=== PATIENT | female | born 1945 | race Caucasian/White ===

== ENCOUNTER 2024-08-09 11:18 | Day surgery (SDC) | payer MEDICARE, MEDICAID, SELFPAY ==
[2024-08-03 14:23] VITALS: BMI 32.9
[2024-08-05 13:46] VITALS: BMI 32.9
[2024-08-09] VITALS (11 sets, daily range): BP systolic 127–159; BP diastolic 58–82; PULSE 72–90; RESP 12–19; TEMP 36.1–37.4; O2SAT 93–96; BMI 32.9
--- NOTE | 2024-08-09 | PATH_ITS ---
[facility] Accession Number: [id number] No. of containers..01 Tissue . 01 Material submitted: . gallbladder - GALLBLADDER . 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 Lymph node of cystic duct with reactive changes. Negative for dysplasia and malignancy. MRV 08/11/2024 1659 Local . 01 Electronically signed: . Kellie Candelaria MD, Pathologist NPI- [id number] . 01 Gross description: . Received in formalin with two identifiers and gallbladder, is an intact gallbladder 8.7 x 3.5 x 3.5 cm. The external surface is de la paz to violaceous and unremarkable. The cystic duct margin is inked blue, and a brown lymph node candidate measuring 0.9 cm in greatest dimension is identified. The lumen is filled with multiple red-yellow faceted calculi up to 0.8 cm in greatest dimension grossly obstructing the cystic duct and admixed with hemorrhagic material. The mucosa is ann-de la paz and diffusely denuded with no yellow areas of discoloration, polyps, or lesions identified. The cagle are pale de la paz and average 0.3 cm thick with no distinct lesions identified. Care Specialist sections are submitted in cassette A1. ([id number]) ([id number]) /ARUN 08/11/2024 1503 Local . 01 Pathologist provided ICD-10: K80.20 . 01 CPT . 287835 Specimen Comment: A courtesy copy of this report has been sent to [phone] Performed at: [address] [facility], [place], [place] [id number] MD Lazarus Felipe MD Phone: [phone]
[2024-08-09] MEDS: LACTATED RINGERS 1,000 ML 42 ML IV ×2 (12:21→14:46)
[2024-08-09] MEDS: ACETAMINOPHEN 325 MG TABLET 975 MG PO (12:22)
--- NOTE | 2024-08-09 12:37 | PM.PREOP ---
Pre-operative Note COVID-19 COVID-19 status: Not tested Interval Note History & Physical reviewed/Exam performed by Physician: Yes Changes to H&P: No ASA Class (for procedural sedation): II
[2024-08-09] MEDS: CEFAZOLIN 2 GM/100 ML PREMIX 100 ML IV (13:31)
[2024-08-09] MEDS: BUPIVACAINE 0.5% W/ EPI (PF) 10 ML VIAL 30 ML INJ (13:43)
--- NOTE | 2024-08-09 13:46 | SUR.OPER ---
Supine on padded OR bed, head on pillow, safety belt at thigh, both arms secured on padded arm board <90 degrees abduction. Legs uncrossed. Padded footboard in place. Tape over blanket to secure lower legs.
--- NOTE | 2024-08-09 14:52 | P.OP_ITS ---
Operative Date/Time/Diagnoses Date of procedure: 08/09/24 Time of procedure: 14:53 Pre-op diagnosis: Gallstones Post-op diagnosis: same Procedure & Clinicians Procedure: Laparoscopic cholecystectomy Same procedure as scheduled: Yes Surgeon: Rayray Elam Integration Developer: Segundo Scott Anesthesia Type: General Operative Notes Procedure in detail: The patient was given preoperative antibiotics. The patient was brought to the operating room and placed on the table in the supine position. General endotracheal anesthesia was induced. The abdomen was prepped and draped. A time-out was performed. We made a 1 cm infraumbilical incision. We dissected down to the base of the umbilical stalk using cautery. We grasped the umbilical stalk with a Carolann clamp to elevate the abdominal wall. We scored the fascia in the midline with cautery. We pierced the peritoneum with a Peon clamp. The Nito port was placed and the abdomen was insufflated to 15 mmHg. A 5 mm 30 degree laparoscopic was inserted. There was no evidence of any injury from the entry. Next, we placed 5 mm ports in the subxiphoid position and right upper quadrant at the midclavicular line and anterior axillary line. The patient was then positioned in reverse Trendelenburg and the table was tilted to the left. There were adhesions of omentum over the gallbladder which we took down with her cautery. The gallbladder was quite tense and distended and needed to be drained with the syringe. We aspirated about 20 mL of thick milky fluid. The gallbladder was grasped at the dome and retracted cephalad. We then dissected the cystic structures with a combination of hook cautery and blunt dissection. We obtained a critical view. We placed clips on the cystic duct and artery and divided the cystic duct and artery sharply between the clips. The gallbladder was then dissected off the liver and placed in a specimen retrieval bag. We irrigated the right upper quadrant and all the aspirate returned clear. We then removed the 5 mm ports under direct vision we removed the Nito port. We then injected some local into the fascia and closed the fascia with 2 interrupted 0 Vicryl sutures. The skin incisions were closed with 4-0 Monocryl and Steri- Strips were applied. Band-Aids were applied over the Steri-Strips. EBL: 20 mL Specimen: Gallbladder and contents Segundo BAZAN provided assistance with exposure, retraction and closure of incisions. Post-operative Condition: stable Disposition: PACU
[2024-08-09] MEDS: ONDANSETRON 4 MG/2 ML INJ IV (15:11)
[2024-08-09] MEDS: OXYCODONE IR 5 MG TABLET PO ×2 (15:21→16:06)
[2024-08-09] MEDS: hydrOXYzine 50 MG/ML INJ 25 MG IM (15:24)
[2024-08-09] MEDS: METOCLOPRAMIDE 10 MG/2 ML INJ IV (15:27)
[2024-08-09] MEDS: HYDROMORPHONE 1 MG INJ IV (15:38)
== END 2024-08-09 16:44 | disposition home or self-care (01) ==
PROVIDERS: PCP Family Medicine; Referring Provider Surgery; Visit Provider Surgery
PROC: 0FT44ZZ Resection of Gallbladder, Percutaneous Endoscopic Approach (ICD-10-PCS; CPT 47562; principal; 2024-08-09 13:00)
DX: K80.10 Calculus of gallbladder with chronic cholecystitis without obstruction (principal); I10 Essential (primary) hypertension; K21.9 Gastro-esophageal reflux disease without esophagitis; R73.03 Prediabetes; K52.9 Noninfective gastroenteritis and colitis, unspecified
CPT/HCPCS: 47562; J0690; J1100; J1171; J2405; J2704; J2765; J3010; J3410

== ENCOUNTER → 2025-04-12 13:51 | Outpatient (CLI) | payer MEDICARE, MEDICAID, SELFPAY ==
--- NOTE | 2025-04-12 13:53 | DI.ECHO.S_ITS ---
[facility]---------+ [facility] : : 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 No regurgitation is present. Peak velocity of 3.35m/s which is slightly increased from previous velocity of 3.1m/s in 2023. Normal biventricular size and systolic function. Normal atrial sizes. No more than mild tricuspid regurgitation is noted. Other findings as below. Increase in trans-aortic gradient likely represent different hemodynamics present at time of respective echocardiograms. Procedure: A two-dimensional transthoracic echocardiogram with color flow and Doppler was performed. The study quality was technically adequate. Comparison is made with the echocardiogram of 12/23/2023 TTE report from [facility]. The patient was in normal sinus rhythm during the exam. Left Ventricle: The left ventricle is normal in size. There is mild asymmetric left ventricular hypertrophy. There is no ventricular septal defect visualized. The ejection fraction is estimated to be 60-65%. There are no focal wall motion abnormalities. Diastolic parameters suggest probable normal left ventricular diastolic function and normal filling pressures. Right Ventricle: The right ventricle is normal in size, thickness and function. The right ventricular systolic function is normal. Atria: The left atrial size is normal. Right atrial size is normal. There is no Doppler evidence for an interatrial shunt. Mitral Valve: The mitral valve leaflets are mildly calcified. There is mild mitral annular calcification. There is mild mitral regurgitation. Aortic Valve: TAVR visualized. The peak aortic velocity is 3.35 m/sec. The aortic valve mean gradient is 26.5 mmHg. No aortic regurgitation is present. Tricuspid Valve: The tricuspid valve leaflets are thin and pliable. There is mild tricuspid regurgitation. The right ventricular systolic pressure is estimated to be at least 33 mmHg based on an estimated right atrial pressure of 3 mm Hg. Pulmonic Valve: The pulmonic valve is not well seen, but is grossly normal. There is no pulmonic valvular regurgitation. Great Vessels: The aortic root is normal size. The dimensions of the ascending aorta are normal. The pulmonary artery is not well visualized, but is probably normal size. The IVC is of normal diameter and collapses greater than 50% with a sniff. This suggests a low right atrial pressure of 3 mm Hg. Pericardium/ Pleura There is no pericardial effusion. There is no pleural effusion. MMode/2D Measurements & Calculations LVIDd: 4.5 cm LVOT diam: 1.6 cm LVIDs: 2.5 cm Ao root diam: 2.9 cm FS: 44.9 % asc Aorta Diam: 3.5 cm EPSS: 0.69 cm IVSd: 1.4 cm LVPWd: 0.95 cm LV pike. diameter/BSA (cm/m^2): 2.2 LV sys. diameter/BSA (cm/m^2): 1.2 LA A2 area: 17.5 cm2 RA long axis: 5.0 cm LA A4 area: 20.1 cm2 RA area: 12.7 cm2 LA length (vol): 5.4 cm RA vol: 27.7 ml LA vol: 55.5 ml RA : 13.8 ml/m2 LA vol index: 27.6 ml/m2 IVC diam: 1.3 cm RVD1 (basal): 4.1 cm RVD2 (mid): 3.2 cm TAPSE: 2.2 cm Doppler Measurements & Calculations Ao V2 max: 335.2 cm/sec LVOT Max Jean Paul: 117.4 cm/sec Ao V2 mean: 243.2 cm/sec LV V1 max P.5 mmHg Ao max P.9 mmHg LV V1 VTI: 33.8 cm Ao mean P.5 mmHg ROXY(I,D): 0.84 cm2 Ao V2 VTI: 82.4 cm ROXY(V,D): 0.71 cm2 sev ratio: 0.41 ROXY indexed to BSA (cm^2/m^2): 0.42 MV E max jean paul: 99.7 cm/sec TR max jean paul: 274.9 cm/sec MV A max jean paul: 109.0 cm/sec TR max P.2 mmHg MV E/A: 0.91 PA V2 max: 97.8 cm/sec Med Peak E' Jean Pual: 5.0 cm/sec PA V2 mean: 70.3 cm/sec E/E' med: 19.8 PA mean P.2 mmHg Lat Peak E' Jean Paul: 7.8 cm/sec PA pr(Accel): 56.7 mmHg E/E' lat: 12.8 E/e' average: 16.3 MV dec time: 0.28 sec SV(LVOT): 68.8 ml Reading Physician:01:16 PM
== END ==
LOC: ECHO 13:52
PROVIDERS: PCP Family Medicine; Referring Provider Internal Medicine Cardiovascular Disease; Visit Provider Internal Medicine Cardiovascular Disease
DX: R06.02 Shortness of breath (principal); I08.1 Rheumatic disorders of both mitral and tricuspid valves
CPT/HCPCS: 93306